=== PATIENT | female | born 1995 | race Two or more races ===

== ENCOUNTER → 2020-07-05 | Outpatient (CLI) | payer MEDICAID | END | disposition home or self-care (01) | LOC: LAB 10:07 | PROVIDERS: ATTEND Physician Assistant | DX: Z20.822 Contact with and (suspected) exposure to COVID-19 (principal) | CPT/HCPCS: C9803; U0003 ==

== ENCOUNTER 2022-01-22 10:13 | Emergency (ER) | payer MEDICAID ==
[~2022-01-22] VITALS: Ht 152.4 cm; Wt 44.5 kg
[2022-01-22] MEDS ORDERED: ASPirin 325 MG TAB PO ONE (10:15)
[2022-01-22 11:00] LABS: Basophils # (auto) 0.1 10 ^3/uL (0-0.2); Basophils % (auto) 0.6 % (0.0-2.0); Eosinophils # (auto) 0.2 10 ^3/uL (0-0.8); Eosinophils % (auto) 2.3 % (0.0-7.0); Hematocrit 42.5 % (36.0-46.0); Hemoglobin 14.2 g/dL (12.2-16.2); Lymphocytes # (auto) 2.8 10 ^3/uL (0.4-5.4); Lymphocytes % (auto) 34.9 % (10.0-50.0); Mean Corpuscular Hemoglobin 29.5 pg (28.0-32.0); Mean Corpuscular Hgb Conc. 33.4 g/dL (32.0-36.0); Mean Corpuscular Volume 88.4 fL (80.0-100.0); Monocytes # (auto) 0.4 10 ^3/uL (0-1.3); Monocytes % (auto) 4.9 % (0.0-12.0); Neutrophils # (auto) 4.5 10 ^3/uL (1.6-8.6); Neutrophils % (auto) 57.3 % (37.0-80.0); Nucleated Red Blood Cells % 0.5 %; Red Blood Cells 4.81 10^6/uL (4.0-5.20); Red Cell Distribution Width 12.4 % (11.8-14.3); White Blood Cell 7.9 10^3/uL (4.4-10.8)
[2022-01-22 11:37] LABS: Albumin 4.3 g/dL (3.4-5.0); BUN/Creatinine Ratio 22.4; Bilirubin, Total 0.2 mg/dL (0.2-1.0); Calcium 9.4 mg/dL (8.5-10.1); Potassium 4.5 mmol/L (3.5-5.1); Total Protein 8.3 g/dL (6.4-8.2)
[2022-01-22] MEDS ORDERED: cefTRIAXone SOD 1,000 MG VL IM ONE (11:45)
[2022-01-22] MEDS ORDERED: methylPREDNISolone SOD SUCC 125 MG/2 ML VL IM ONE (11:45)
[2022-01-22] MEDS ORDERED: LEVO-28 PO (13:19)
[2022-01-22] MEDS ORDERED: PANT40TA2 PO (13:19)
[2022-01-22] MEDS ORDERED: PRED10TA PO (13:19)
[2022-01-22 14:42] VITALS: BP 132/80
== END 2022-01-22 14:43 | disposition home or self-care (01) ==
LOC: ER 10:16
DX: J06.9 Acute upper respiratory infection, unspecified (principal); J40 Bronchitis, not specified as acute or chronic; Z20.822 Contact with and (suspected) exposure to COVID-19
CPT/HCPCS: 36415; 71045; 80053; 84484; 85025; 87426; 87804; 93005; 99285; J0696; J2930

== ENCOUNTER 2025-01-30 17:56 | Inpatient (IN) | payer MEDICAID ==
[~2025-01-30] VITALS: Ht 152.4 cm; Wt 52.0 kg
[~2025-01-30 17:56] MED LIST: LEVO500T91 PO; PANT40TA2 PO; PRED10TA PO
[2025-01-30] MEDS: ONDANSETRON ODT 4 MG TAB PO ONE (18:22)
[2025-01-30 18:25] LABS: Hematocrit 40.5 % (36.0-46.0); Hemoglobin 14.1 g/dL (12.2-16.2); Mean Corpuscular Hemoglobin 30.9 pg (28.0-32.0); Mean Corpuscular Volume 88.5 fL (80.0-100.0); Nucleated Red Blood Cells % 0.0 %
[2025-01-30 18:41] LABS: Alanine Aminotransferase 14 U/L (7-40); Alkaline Phosphatase 56 U/L (46-116); Calcium 9.5 mg/dL (8.7-10.4); Carbon Dioxide 21 mmol/L (20-31); Chloride 107 mmol/L (98-107)
[2025-01-30 18:42] LABS: Albumin 4.7 g/dL (3.2-4.8); Anion Gap 10 (5-15); BUN/Creatinine Ratio 16.1 (10.0-20.0); Blood Urea Nitrogen 10 mg/dL (9-23); Glucose 95 mg/dL (74-106); Sodium 138 mmol/L (136-145); Total Protein 7.9 g/dL (5.7-8.2)
[2025-01-30 18:43] LABS: Bilirubin, Total 0.2 mg/dL (0.2-1.0); Potassium 3.2 mmol/L (3.5-5.1)
--- NOTE | 2025-01-30 20:13 | ED.PDOC ---
HPI Comments 29-year-old female who came to ER for chest pains. . Patient is a approximately 9-10 weeks . About an hour ago patient started having midsternal chest pains, palpitations, nausea and vomiting. Patient states he had a similar episode and during her 1st , was seen by engineer sergeant, but was unable to remember what she was diagnosed with. Patient currently not taking any cardiac meds. Denies any vaginal bleeding or abdominal cramping at this time Chief Complaint: Chest Pain Time Seen by MD: 20:12 Reviewed Notes: Nurses Notes Allergies: Coded Allergies: NO KNOWN ALLERGIES (Unverified , 02/07/14) Home Meds Active Scripts Levofloxacin Hemihydrate (LEVOFLOXACIN) 500 Mg Tab, 1 TAB PO DAILY for 7 Days, #7 TAB Prov:FIFI PHAM MD 01/22/22 Pantoprazole Sodium Sesquihydr (Protonix) 40 Mg Tab, 40 MG PO DAILY for 7 Days, #7 TAB Prov:FIFI PHAM MD 01/22/22 Prednisone (Prednisone) 10 Mg Tab, 10 MG PO DAILY for 7 Days, #7 MG Prov:FIFI PHAM MD 01/22/22 Information Source: Patient Mode of Arrival: Ambulatory Past Medical History PAST MEDICAL HISTORY: Denies Past Medical History (Other): SVT? Surgical History: Denies all surgeries LEAD SHOP OPERATOR History: No Pertinent LEAD SHOP OPERATOR History Family History Family History: Reviewed,noncontributory to illness Social History Smoker: Non-Smoker Alcohol: Denies ETOH Use Drugs: Denies Drug Use Lives In: Home Constitutional: denies: chills, diaphoresis, fatigue, fever, malaise, sweats, weakness, others EENTM: denies: blurred vision, double vision, ear bleeding, ear discharge, ear drainage, ear pain, ear ringing, eye pain, eye redness, hearing loss, mouth pain, mouth swelling, nasal discharge, nose bleeding, nose congestion, nose pain, photophobia, tearing, throat pain, throat swelling, voice changes, others Respiratory: denies: cough, hemoptysis, orthopnea, SOB at rest, shortness of breath, SOB with excertion, stridor, wheezing, others Cardiovascular: reports: chest pain, palpitations; denies: dizzy spells, diaphoresis, Dyspnea on exertion, edema, irregular heart beat, left arm pain, lightheadedness, PND, syncope, others Gastrointestinal: reports: nausea, vomiting; denies: abdomen distended, abdominal pain, blood streaked bowels, constipated, diarrhea, dysphagia, difficulty swallowing, hematemesis, melena, poor appetite, poor fluid intake, rectal bleeding, rectal pain, others Genitourinary: denies: abnormal vagina bleeding, burning, dyspareunia, dysuria, flank pain, frequency, hematuria, incontinence, pain, , vagina discharge, urgency, others Neurological: denies: dizziness, fainting, headache, left sided numbness, left sided weakness, numbness, paresthesia, pre-existing deficit, right sided numbness, right sided weakness, seizure, speech problems, tingling, tremors, weakness, others Musculoskeletal: denies: back pain, gout, joint pain, joint swelling, muscle pain, muscle stiffness, neck pain, others Integumetry: denies: bruises, change in color, change in hair/nails, dryness, laceration, lesions, lumps, rash, wounds, others Allergic/Immunocompromised: denies: Difficulty Healing, Frequent Infections, Hives, Itching, others Hematologic/Lymphatic: denies: anemia, blood clots, easy bleeding, easy bruising, swollen glands, others Endocrine: denies: excessive hunger, excessive sweating, excessive thirst, excessive urination, flushing, intolerance to cold, intolerance to heat, unexplained weight gain, unexplained weight loss, others Psychiatric: denies: anxiety, bipolar disorder, depression, hopeless, panic disorder, schizophrenia, sleepless, suicidal, others Physical Exam General Appearance: No Apparent Distress, Normal HEENT: Normal ENT Inspection, Pharynx Normal, TMs Normal Neck: Full Range of Motion, Non-Tender, Normal, Normal Inspection Respiratory: Chest Non-Tender, Lungs Clear, No Accessory Muscle Use, No Respiratory Distress, Normal Breath Sounds Cardiovascular: No Edema, No JVD, No Murmur, No Gallop, Normal Peripheral Pulses, Regular Rate/Rhythm Breast Exam: Deferred Gastrointestinal: No Organomegaly, Non Tender, No Pulsatile Mass, Normal Bowel Sounds, Soft Genitalia: Deferred Pelvic: Deferred Rectal: Deferred Extremities: No calf tenderness, Normal capillary refill, Normal inspection, Normal range of motion, Non-tender, No pedal edema Musculoskeletal : Apperance: Normal Neurologic: Alert, differential specialist II-XII nml as Tested, No Motor Deficits, Normal Affect, Normal Mood, No Sensory Deficits Cerebellar Function: Normal Reflexes: Normal Skin: Dry, Normal Color, Warm Lymphatic: No Adenopathy EKG EKG : Pulse Rate (adult): 122 Cardiac Rhythm: ST Was a procedure done? Was a procedure done?: No CP Differential Dx Differential Diagnosis: A-fib, Angina, Anxiety / Panic Attack, Electrolyte Disorder, Hyperthyroidism, Hyperventilation, PSVT, Sinus Tachycardia X-Ray, Labs, Meds, VS Vital Signs Date Time Temp Pulse Resp B/P (MAP) Pulse Ox O2 Delivery O2 Flow Rate FiO2 01/30/25 21:41 98.3 119 28 122/95 (104) 99 98.3 01/30/25 20:59 122 01/30/25 20:13 122 01/30/25 19:30 122 01/30/25 19:16 156 25 142/105 (117) 100 01/30/25 18:02 134 01/30/25 18:00 98.2 153 19 138/103 100 98.2 Lab Test 01/30/25 20:17 01/30/25 19:37 01/30/25 18:19 01/30/25 18:16 Range/Units Urine Color Colorless Yellow Urine Clarity Turbid H Clear Urine pH 5.5 5.0-9.0 Urine Specific [place] 1.016 1.001-1.035 Urine Protein Negative Negative Urine Ketones Negative Negative Urine Blood Negative Negative /uL Urine Nitrite Negative Negative Urine Bilirubin Negative Negative Urine Urobilinogen Normal Negative mg/dL Urine Leukocyte Esterase 2+ Negative /uL Urine RBC 3 0 - 4 /hpf Urine Microscopic WBC 16 H 0-5 /HPF Urine Squamous Epithelial Cells Mod <5 /hpf Urine Bacteria Mod H None Seen /hpf Urine Mucus Few None Seen Urine Yeast (Budding) Occasional None Seen /hpf Urine Glucose Normal Normal mg/dL Urine Test Positive Negative Troponin I High Sensitivity 3 L < 3 L </=34 ng/L Thyroid Stimulating Hormone (TSH) 1.55 0.55-4.78 uIU/mL Beta HCG, Quantitative 17660.1 H 1.5-4.2 mIU/mL Free Thyroxine (T4) Calculated Pending White Blood Count 6.7 4.4-10.8 10^3/uL Red Blood Count 4.57 4.0-5.20 10^6/uL Hemoglobin 14.1 12.2-16.2 g/dL Hematocrit 40.5 36.0-46.0 % Mean Corpuscular Volume 88.5 80.0-100.0 fL Mean Corpuscular Hemoglobin 30.9 28.0-32.0 pg Mean Corpuscular Hemoglobin Concent 35.0 32.0-36.0 g/dL Red Cell Distribution Width 13.0 11.8-14.3 % Platelet Count 232 140-450 10^3/uL Mean Platelet Volume 8.8 6.9-10.8 fL Neutrophils (%) (Auto) 73.3 37.0-80.0 % Lymphocytes (%) (Auto) 18.9 10.0-50.0 % Monocytes (%) (Auto) 6.4 0.0-12.0 % Eosinophils (%) (Auto) 1.2 0.0-7.0 % Basophils (%) (Auto) 0.2 0.0-2.0 % Neutrophils # (Auto) 4.9 1.6-8.6 10 ^3/uL Lymphocytes # (Auto) 1.3 0.4-5.4 10 ^3/uL Monocytes # (Auto) 0.4 0-1.3 10 ^3/uL Eosinophils # (Auto) 0.1 0-0.8 10 ^3/uL Basophils # (Auto) 0 0-0.2 10 ^3/uL Nucleated Red Blood Cells 0.0 % D-Dimer, Quantitative 0.49 0.0-0.49 mg/L FEU Sodium Level 138 136-145 mmol/L Potassium Level 3.2 L 3.5-5.1 mmol/L Chloride Level 107 98-107 mmol/L Carbon Dioxide Level 21 20-31 mmol/L Anion Gap 10 5-15 Blood Urea Nitrogen 10 9-23 mg/dL Creatinine 0.62 0.550-1.02 mg/dL Glomerular Filtration Rate Calc 125 >90 mL/min BUN/Creatinine Ratio 16.1 10.0-20.0 Serum Glucose 95 74-106 mg/dL Calcium Level 9.5 8.7-10.4 mg/dL Total Bilirubin 0.2 0.2-1.0 mg/dL Aspartate Amino Transferase (AST) 18 13-40 U/L Alanine Aminotransferase (ALT) 14 7-40 U/L Alkaline Phosphatase 56 46-116 U/L Total Protein 7.9 5.7-8.2 g/dL Albumin 4.7 3.2-4.8 g/dL Current Medications Medications (Trade) Dose Ordered Sig/[place]ennox Route Start Time Stop Time Status Last Admin Ondansetron HCl (Zofran Po) 8 mg ONCE ONCE PO 01/30/25 18:30 01/30/25 18:31 DC 01/30/25 18:22 Time of 1ST Reevaluation: 20:10 Reevaluation 1ST: Unchanged Patient Education/Counseling: Diagnosis, Treatment Family Education/Counseling: No Family Present SEPSIS Sepsis Screen Date sepsis recognized/suspect: Jan 30, 2025 Time Sepsis recognized/suspect: 1802 Recent Procedure: No On Antibiotic Therapy: No Respiratory Rate >20: No Heart Rate >90: No Temp<36 C (96.8 F) or >38.3 C: No SBP <90 or MAP <65 mmHG: No New Acute Mental Status Change: No Is the patient on CPAP, BIPAP,: No Physician Orders Free T4 (Free Thyroxine) (01/30/25 19:15) Lactic Acid W/ Reflex Order (01/30/25 21:42) Blood Culture (01/30/25 21:42) Sodium Chloride 0.9% (01/30/25 21:45) Ceftriaxone 2gm/50ml (Rocephin 2gm/50ml) (01/30/25 21:45) Vital Signs Date Time Temp Pulse Resp B/P (MAP) Pulse Ox O2 Delivery O2 Flow Rate FiO2 01/30/25 21:41 98.3 119 28 122/95 (104) 99 98.3 01/30/25 20:59 122 01/30/25 20:13 122 01/30/25 19:30 122 01/30/25 19:16 156 25 142/105 (117) 100 01/30/25 18:02 134 01/30/25 18:00 98.2 153 19 138/103 100 98.2 Laboratory Tests Test 01/30/25 18:16 White Blood Count 6.7 10^3/uL (4.4-10.8) Medications Medications Dose Ordered Sig/Lennox Route Start Time Stop Time Status Last Admin Dose Admin Ondansetron HCl 8 mg ONCE ONCE PO 01/30/25 18:30 01/30/25 18:31 DC 01/30/25 18:22 Departure 1 Departure Time of Disposition: 21:50 Impression: Primary Impression: Tachycardia Additional Impressions: Dyspnea 9 weeks gestation of Urinary tract infection Pyelonephritis Disposition: ADMITTED INPATIENT Admit to: Med Surg Condition: Guarded Comments 29-year-old female now with 9 week and feeling short of breath with palpitations. She has been quite tachycardic from the 120s to 150s. It looks like she has a urinary tract infection on lab results. Patient will need to be admitted for IV antibiotics and IV fluids and supportive care and further workup. Critical Care Note Critical Care Time?: No Stability Stability form required: No Heart Score Heart Score: Heart Score Response (Comments) Value History Moderate Suspicious 1 EKG Repolarization Disturb 1 Age <45 0 Risk Factors 1 or 2 risk factors 1 Troponin Normal limit 0 Total 3 I personally scribed for EMILE MILLS MD ([email or web address]) on 01/30/25 at 20:13. Electronically submitted by Casa Altman ([email or web address]). EMILE MILLS MD Jan 30, 2025 20:13
[2025-01-30 20:20] LABS: Thyroid Stimulating Hormone 1.55 uIU/mL (0.55-4.78)
[2025-01-30 20:29] LABS: Urine Budding Yeast OCCASIONAL /hpf (None Seen); Urine Protein, UAD Negative (Negative)
--- NOTE | 2025-01-30 21:01 | ECG ---
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
--- NOTE | 2025-01-30 22:53 | DVH ---
OB ULTRASOUND <14 WEEKS: HISTORY: r/o demise TECHNIQUE: Multiple real-time grayscale sonographic images of the pelvis with duplex Doppler color flow, spectral and M-mode analysis. COMPARISON: None FINDINGS: The uterus measures 12.1 x 4.9 x 7.8 cm The cervix is unremarkable Right ovary measures 3.0 x 2.3 x 2.8 cm with normal Doppler color flow. Left ovary measures 0.5 x 1.7 x 2.4 cm with normal Doppler color flow. IUP single fetus at 9 weeks 2 days average ultrasound age based on mean crown- rump length of 2.86 cm and gestational sac size of 3.71 cm heart rate detected at 171 beats per minute. Yolk sac present. Amniotic fluid within normal limits Christiane-gestational space: Moderate size subchorionic hemorrhage on the inferior aspect of the gestational sac with 1 component measuring 2.3 x 0.6 x 1.5 cm in the other component measuring 2.5 x 1.3 x 1.0 cm. IMPRESSION: IUP single live fetus measuring 9 weeks 2 days AUA corresponding to an JP of 09/02/2025. Two adjacent subchorionic hemorrhages noted.
[2025-01-30] MEDS: SODIUM CHLORIDE 0.9% 1,350 ML IV ONE (23:30)
--- NOTE | 2025-01-30 23:35 | DVHHPRES ---
History of Present Illness Resident Creating Document: ELSI MICHEL RESIDENT History of Present Illness Ms Radha Michael, a 29-year-old female, , 9 weeks presented to the ER with the complaints of palpitations and chest pain for 1 day. She reports having those symptoms spontaneously while she was taking rest. She reports the chest pain as tightness, as someone sitting on the chest, which radiates to the back and shoulder blades. She also reports having mild shortness of breaths with a no relation to position change. She denies any urinary symptoms, vaginal bleeding, fever or any other complaints. She denies any caffeine use, anxiety, thyroid disorders. The patient is not taking any vitamins or folic acid due to concern for shellfish allergy, she believes multivitamin contains shellfish. Past medical history: Possible Arrhythmia during previous , which required DC shock? Past surgical history: none, 1st baby was born by normal vaginal delivery Allergies: Shellfish Menstrual history: Currently 9 weeks , regular menstruation. PCP: None, family welfare social work professor: Dr. Turcios Denies smoking, drugs, alcohol. Home medications: None Review of Systems Allergies: Coded Allergies: NO KNOWN ALLERGIES (Unverified , 02/07/14) Exam Vital Signs Vital Signs Date Time Temp Pulse Resp B/P (MAP) Pulse Ox O2 Delivery O2 Flow Rate FiO2 01/30/25 21:41 98.3 119 28 122/95 (104) 99 98.3 Exam Pt is lying on bed General Appearance: Alert, Oriented X3, Cooperative, Mild distress HEENT: Atraumatic, Mucous membranes moist/pink Respiratory: Clear to auscultation, Normal air movement, No added sounds Cardiovascular: Regular rate, Normal S1, Normal S2, No murmurs Abdominal/ : Active bowel sounds, Soft, no distention, no tenderness Extremities: No edema, Normal pulses, No tenderness/swelling Skin: No Significant rash, except past surgical scars Neuro: Normal speech, sensorimotor deficits none Psych/Mental Status: Mental status NL, Mood NL Nurse was there as roller stainer during examination Labs/Xrays Labs Test 01/30/25 21:49 01/30/25 20:17 01/30/25 19:37 01/30/25 18:19 Range/Units Lactic Acid Level 0.7 0.4-2.0 mmol/L Urine Color Colorless Yellow Urine Clarity Turbid H Clear Urine pH 5.5 5.0-9.0 Urine Specific [place] 1.016 1.001-1.035 Urine Protein Negative Negative Urine Ketones Negative Negative Urine Blood Negative Negative /uL Urine Nitrite Negative Negative Urine Bilirubin Negative Negative Urine Urobilinogen Normal Negative mg/dL Urine Leukocyte Esterase 2+ Negative /uL Urine RBC 3 0 - 4 /hpf Urine Microscopic WBC 16 H 0-5 /HPF Urine Squamous Epithelial Cells Mod <5 /hpf Urine Bacteria Mod H None Seen /hpf Urine Mucus Few None Seen Urine Yeast (Budding) Occasional None Seen /hpf Urine Glucose Normal Normal mg/dL Urine Test Positive Negative Troponin I High Sensitivity 3 L </=34 ng/L Thyroid Stimulating Hormone (TSH) 1.55 0.55-4.78 uIU/mL Beta HCG, Quantitative 68312.1 H 1.5-4.2 mIU/mL Test 01/30/25 18:16 Range/Units White Blood Count 6.7 4.4-10.8 10^3/uL Red Blood Count 4.57 4.0-5.20 10^6/uL Hemoglobin 14.1 12.2-16.2 g/dL Hematocrit 40.5 36.0-46.0 % Mean Corpuscular Volume 88.5 80.0-100.0 fL Mean Corpuscular Hemoglobin 30.9 28.0-32.0 pg Mean Corpuscular Hemoglobin Concent 35.0 32.0-36.0 g/dL Red Cell Distribution Width 13.0 11.8-14.3 % Platelet Count 232 140-450 10^3/uL Mean Platelet Volume 8.8 6.9-10.8 fL Neutrophils (%) (Auto) 73.3 37.0-80.0 % Lymphocytes (%) (Auto) 18.9 10.0-50.0 % Monocytes (%) (Auto) 6.4 0.0-12.0 % Eosinophils (%) (Auto) 1.2 0.0-7.0 % Basophils (%) (Auto) 0.2 0.0-2.0 % Neutrophils # (Auto) 4.9 1.6-8.6 10 ^3/uL Lymphocytes # (Auto) 1.3 0.4-5.4 10 ^3/uL Monocytes # (Auto) 0.4 0-1.3 10 ^3/uL Eosinophils # (Auto) 0.1 0-0.8 10 ^3/uL Basophils # (Auto) 0 0-0.2 10 ^3/uL Nucleated Red Blood Cells 0.0 % D-Dimer, Quantitative 0.49 0.0-0.49 mg/L FEU Sodium Level 138 136-145 mmol/L Potassium Level 3.2 L 3.5-5.1 mmol/L Chloride Level 107 98-107 mmol/L Carbon Dioxide Level 21 20-31 mmol/L Anion Gap 10 5-15 Blood Urea Nitrogen 10 9-23 mg/dL Creatinine 0.62 0.550-1.02 mg/dL Glomerular Filtration Rate Calc 125 >90 mL/min BUN/Creatinine Ratio 16.1 10.0-20.0 Serum Glucose 95 74-106 mg/dL Calcium Level 9.5 8.7-10.4 mg/dL Total Bilirubin 0.2 0.2-1.0 mg/dL Aspartate Amino Transferase (AST) 18 13-40 U/L Alanine Aminotransferase (ALT) 14 7-40 U/L Alkaline Phosphatase 56 46-116 U/L Total Protein 7.9 5.7-8.2 g/dL Albumin 4.7 3.2-4.8 g/dL SEPSIS Sepsis Screen Date sepsis recognized/suspect: Jan 30, 2025 Time Sepsis recognized/suspect: 1802 Recent Procedure: No On Antibiotic Therapy: No Respiratory Rate >20: No Heart Rate >90: No Temp<36 C (96.8 F) or >38.3 C: No SBP <90 or MAP <65 mmHG: No New Acute Mental Status Change: No Is the patient on CPAP, BIPAP,: No Physician Orders Free T4 (Free Thyroxine) (01/30/25 19:15) Blood Culture (01/30/25 21:42) Ob Ultrasound Comp Less 14wks (01/30/25 21:52) Thyroid Stimulating Hormone (01/30/25 23:31) Admit (01/30/25 23:31) Notify Of Changes From Base (01/30/25 23:31) Van Driver Helper For 24 Hours (01/30/25 23:31) Emergency Dysrhythmia Protocol (01/30/25 23:31) Rhythm Strips Once Every Shift (01/30/25 23:31) Potassium Effervesent Tab (Klor-Con/Ef) (01/30/25 23:45) Vital Signs Date Time Temp Pulse Resp B/P (MAP) Pulse Ox O2 Delivery O2 Flow Rate FiO2 01/30/25 21:41 98.3 119 28 122/95 (104) 99 98.3 01/30/25 20:59 122 01/30/25 20:13 122 01/30/25 19:30 122 01/30/25 19:16 156 25 142/105 (117) 100 01/30/25 18:02 134 01/30/25 18:00 98.2 153 19 138/103 100 98.2 Laboratory Tests Test 01/30/25 18:16 01/30/25 21:49 White Blood Count 6.7 10^3/uL (4.4-10.8) Lactic Acid Level 0.7 mmol/L (0.4-2.0) Medications Medications Dose Ordered Sig/Lennox Route Start Time Stop Time Status Last Admin Dose Admin Ceftriaxone Sodium/Dextrose 50 ml @ 50 mls/hr ONCE ONCE IV 01/30/25 21:45 01/30/25 22:44 DC 01/30/25 23:30 50 MLS/HR Ondansetron HCl 8 mg ONCE ONCE PO 01/30/25 18:30 01/30/25 18:31 DC 01/30/25 18:22 8 MG Sodium Chloride 1,350 ml @ 1,350 mls/hr ONCE ONCE IV 01/30/25 21:45 01/30/25 22:44 DC 01/30/25 23:30 1,350 MLS/HR Assessment/Plan Assessment/Plan Chest pain rule out ACS Tachycardia/palpitations EKG: Sinus tachycardia, no acute ischemic changes Troponin WNL Echocardiography ordered with no vaginal bleed -ultrasound: Live fetus, with adjacent subchorionic hemorrhage -recommended with green leafy vegetables -consider multivitamins and folic acid after family welfare social work professor consult, due to patient has allergies to multivitamin -family welfare social work professor consultation done Rule out thyroid disorder -TSH and free T4 ordered GI prophylaxis: Not indicated DVT prophylaxis: SCDs Diet: Regular Goals of care discussed with the patient for more than 27 minutes: Full code status Case discussed with Dr. Weiss , patient and RN Plan discussed with: Patient, Other (RN) My Orders Orders - ELSI MICHEL Procedure Category Date Status Time Thyroid Stimulating LAB 01/30/25 Verified Hormone 23:31 Admit ADMIT 01/30/25 Verified 23:31 Notify Md Of Changes [facility] 01/30/25 Verified From Base 23:31 Van Driver Helper For [facility] 01/30/25 Verified 24 Hours 23:31 Emergency Dysrhythmia [facility] 01/30/25 Verified Protocol 23:31 Rhythm Strips Once [facility] 01/30/25 Verified Every Shift 23:31 Potassium Effervesent [facility] WITH [facility] 01/30/25 Verified Tab (Klor-Con/Ef) 23:45 Date of Service: Jan 30, 2025 Billing Provider: ELSI MICHEL MARIA RESIDENT Jan 30, 2025 23:35
[2025-01-31] MEDS: POTASSIUM EFFERVESENT TAB 25 MEQ PO ONE (00:22)
[2025-01-31 02:00] VITALS: PULSE 97; RESP 19; O2SAT 98
[2025-01-31 08:12] LABS: Alanine Aminotransferase 15 U/L (7-40); Alkaline Phosphatase 48 U/L (46-116); Anion Gap 10 (5-15); Carbon Dioxide 23 mmol/L (20-31); Chloride 106 mmol/L (98-107); Glucose 83 mg/dL (74-106); Potassium 3.7 mmol/L (3.5-5.1); Sodium 139 mmol/L (136-145)
[2025-01-31 08:13] LABS: Albumin 4.0 g/dL (3.2-4.8); BUN/Creatinine Ratio 11.5 (10.0-20.0); Total Protein 6.8 g/dL (5.7-8.2)
[2025-01-31 08:17] LABS: Bilirubin, Total 0.3 mg/dL (0.2-1.0); Blood Urea Nitrogen 6 mg/dL (9-23); Calcium 8.6 mg/dL (8.7-10.4)
--- NOTE | 2025-01-31 12:25 | DVHPN2 ---
Subjective The patient is seen and examined at bedside. Complain of chest pain and heart palpitation. She said every time she she had this severe heart palpitation and chest pain. Reviewed: Care Plan, H&P, Labs, Medications, Previous Orders, Radiology Changes from previous H/P or p: No Changes Objective Vitals Vital Signs Date Time Temp Pulse Resp B/P (MAP) Pulse Ox O2 Delivery O2 Flow Rate FiO2 01/31/25 12:05 99 01/31/25 10:00 15 126/72 (90) 98 01/31/25 08:33 Room Air* 0 21 01/31/25 08:00 98.9 98.9 General Appearance: Alert, Oriented X3, Cooperative, mild distress HEENT: Atraumatic, PERRLA, EOMI, Mucous membr. moist/pink Neck: Supple Lungs: Clear to auscultation, Normal air movement Cardiovascular: Regular rate, Normal S1, Normal S2, No murmurs, Gallops, Rubs Abdomen: Normal bowel sounds, Soft, No tenderness Neuro: Cranial nerves 3-12 NL Psych/Mental Status: Mental status NL Medications Current Medications Medications Dose Ordered Sig/Lennox Route Start Time Stop Time Status Last Admin Dose Admin Ceftriaxone Sodium 50 ml @ 100 mls/hr DAILY@2100 IV 01/31/25 21:00 Laboratory Results Laboratory Tests 01/30/25 18:16 01/31/25 07:42 Chemistry Test 01/30/25 18:16 01/31/25 07:42 Albumin 4.7 g/dL (3.2-4.8) 4.0 g/dL (3.2-4.8) Calcium Level 9.5 mg/dL (8.7-10.4) 8.6 mg/dL (8.7-10.4) L Total Protein 7.9 g/dL (5.7-8.2) 6.8 g/dL (5.7-8.2) Coagulation Test 01/30/25 18:16 D-Dimer, Quantitative 0.49 mg/L FEU (0.0-0.49) LFT Test 01/30/25 18:16 01/31/25 07:42 Alanine Aminotransferase (ALT) 14 U/L (7-40) 15 U/L (7-40) Alkaline Phosphatase 56 U/L (46-116) 48 U/L (46-116) Aspartate Amino Transferase (AST) 18 U/L (13-40) 17 U/L (13-40) Total Bilirubin 0.2 mg/dL (0.2-1.0) 0.3 mg/dL (0.2-1.0) HgA1c, TSH Test 01/30/25 19:37 01/30/25 21:49 Thyroid Stimulating Hormone (TSH) 1.55 uIU/mL (0.55-4.78) 1.77 uIU/mL (0.55-4.78) Urinalysis Test 01/30/25 20:17 Urine Color Colorless (Yellow) Urine Clarity Turbid (Clear) H Urine pH 5.5 (5.0-9.0) Urine Specific [place] 1.016 (1.001-1.035) Urine Protein Negative (Negative) Urine Ketones Negative (Negative) Urine Blood Negative /uL (Negative) Urine Nitrite Negative (Negative) Urine Bilirubin Negative (Negative) Urine Urobilinogen Normal mg/dL (Negative) Urine Leukocyte Esterase 2+ /uL (Negative) Urine RBC 3 /hpf (0 - 4) Urine Microscopic WBC 16 /HPF (0-5) H Urine Squamous Epithelial Cells Mod /hpf (<5) Urine Bacteria Mod /hpf (None Seen) H Urine Mucus Few (None Seen) Urine Yeast (Budding) Occasional /hpf (None Urine Glucose Normal mg/dL (Normal) Urine Test Positive (Negative) Labs and/or images reviewed: Labs reviewed by me Assessment/Plan Assessment/Plan Chest pain rule out ACS Tachycardia/palpitations EKG: Sinus tachycardia, no acute ischemic changes Troponin WNL Echocardiography ordered with no vaginal bleed -ultrasound: Live fetus, with adjacent subchorionic hemorrhage -recommended with green leafy vegetables -consider multivitamins and folic acid after technology adoption manager consult, due to patient has allergies to multivitamin -technology adoption manager consultation done Rule out thyroid disorder -TSH and free T4 ordered GI prophylaxis: Not indicated DVT prophylaxis: SCDs Diet: Regular Continuing current management. Cardiology consult for chest pain. This medical document was created using an electronic medical record system with [employer] direct computerized dictation system. Although this document has been carefully reviewed, there may still be some phonetic and typographical errors. These areas are purely typographical due to imperfections of the software programs, and do not reflect any compromise in the patient's medical care. Plan discussed with: Patient Date of Service: Jan 31, 2025 Billing Provider: DORON ROBERT MD Common Visit Codes: 52002-[id number] INP/OBS CARE(HIGH) DORON ROBERT MD Jan 31, 2025 12:25
[2025-01-31 12:54] VITALS: PULSE 94; RESP 14; O2SAT 98
[2025-01-31 19:32] VITALS: PULSE 95; RESP 14; O2SAT 98
[2025-01-31 23:12] VITALS: PULSE 88; RESP 17; O2SAT 98
[2025-02-01] VITALS (8 sets, daily range): BP systolic 104–120; BP diastolic 70–90; PULSE 86–117; RESP 16–20; TEMP 97.6–98.1; O2SAT 98–100
[2025-02-01] MEDS ORDERED: ACETAMINOPHEN 325 MG TAB PO PRN
--- NOTE | 2025-02-01 09:41 | DVHINCON2 ---
QI SCHAFFER [facility] 02/01/25 0941: Date Seen: Feb 01, 2025 Referring Physician MD Brit Reason for Consultation Chest pain History of Present Illness This is a pleasant 29-year-old female who presented to the emergency room with a chief complaint of palpitations on Saturday. The patient complains of intermittent palpitations since Saturday with one event lasting approximately 15 minutes and prompting her to seek further medical attention. She also complains of chest pain described as intermittent, substernal, non provoked, stabbing in nature, radiating to bilateral shoulders and right lower back. The patient reports she is currently 10 weeks and reports experiencing a similar event during her last when she was seven months into gestation in 12/2022. At that time, she experienced persistent palpitations for which she attended [facility] where she was found with an unspecified t achyarrhythmia undergoing direct current cardioversion x2. Patient reports she was admitted overnight. Denies being evaluated by a executive admin neither undergoing further cardiac workup. She was recommended to follow-up with her VEGETABLE LOADER to refer her to a primary executive admin for which she was referred but the patient somehow did not follow up as she felt it would not be safe for her . States she approximately drinks 1.5 L of water per day. Denies the use of caffeine, energy drinks, or pre-workout. Significant medical history includes gestational tachyarrhythmia status post DCCV in 12/2022 and . Past Medical History Past medical history reviewed. No other significant than mentioned above. Past Surgical History Denies any past surgical history. Family History: Diabetes mellitus G8 FATHER Hypertension G8 FATHER Family History Denies family history for cardiovascular disease. Social History Denies the use of illicit drugs, alcohol, or tobacco use. Allergies: Uncoded Allergies: SHELLFISH (Allergy, Severe, anaphlaxis, 01/31/25) Home Meds No Active Prescriptions or Reported Meds Home Meds Home medications reviewed. Current Medications Current Medications Medications (Trade) Dose Ordered Sig/Lennox Route PRN Reason Start Time Stop Time Status Last Admin Ceftriaxone Sodium 50 ml @ 100 mls/hr DAILY@2100 IV 01/31/25 21:00 01/31/25 21:05 Acetaminophen (Tylenol Tablet) 650 mg Q6HPRN PRN PO MILD PAIN (1-3 PAIN SCALE) 02/01/25 00:00 Review of Systems Constitutional: No symptom reported Ears, Nose, & Throat: No symptom reported Eyes: No symptom reported Neurological: No symptoms reported Pulmonary/Respiratory: No symptom reported Cardiovascular: Palpitations, chest pain Gastrointestinal: No symptom reported Genitourinary: No symptom reported Musculoskeletal: No symptom reported Skin: No symptom reported Psychiatric: No symptom reported Endocrine: No symptom reported Hemotologic/Lymphatic: No symptom reported Vital Signs Vital Signs Date Time Temp Pulse Resp B/P (MAP) Pulse Ox O2 Delivery O2 Flow Rate FiO2 02/01/25 05:00 98.1 86 16 106/76 (86) 99 98.1 01/31/25 23:12 Room Air* 0 21 Physical Exam General Appearance: Cooperative. Well developed. Well nourished. In no acute distress Head Exam: Normal inspection Neck Exam: Normal inspection. Non-tender. Normal alignment Pulmonary/Respiratory: Chest non-tender. Clear bilateral breath sounds Cardiovascular/Chest: Regular rate and rhythm. S1, S2. Sinus rhythm. No murmurs. No JVD. Peripheral Pulses: 2+ Radial (R). 2+ Radial (L). 2+ Pedal (R). 2+ Pedal (L) Abdominal Exam: Normal bowel sounds Ankle Exam: Negative ankle edema Lower extremities: Negative lower extremity edema Neuro/Mental Status: A&O x4. Coherent Thoughts/Psych: Normal thought pattern. Appropriate mood and affect. Good judgement and insight Appearance: In no acute distress Skin Exam: Normal inspection. Normal color. Warm. Dry Labs/Diagnostic Data Labs Test 01/31/25 07:42 01/30/25 21:49 01/30/25 20:17 01/30/25 19:37 Range/Units Sodium Level 139 136-145 mmol/L Potassium Level 3.7 3.5-5.1 mmol/L Chloride Level 106 98-107 mmol/L Carbon Dioxide Level 23 20-31 mmol/L Anion Gap 10 5-15 Blood Urea Nitrogen 6 L 9-23 mg/dL Creatinine 0.52 L 0.550-1.02 mg/dL Glomerular Filtration Rate Calc 131 >90 mL/min BUN/Creatinine Ratio 11.5 10.0-20.0 Serum Glucose 83 74-106 mg/dL Calcium Level 8.6 L 8.7-10.4 mg/dL Total Bilirubin 0.3 0.2-1.0 mg/dL Aspartate Amino Transferase (AST) 17 13-40 U/L Alanine Aminotransferase (ALT) 15 7-40 U/L Alkaline Phosphatase 48 46-116 U/L Total Protein 6.8 5.7-8.2 g/dL Albumin 4.0 3.2-4.8 g/dL Lactic Acid Level 0.7 0.4-2.0 mmol/L Thyroid Stimulating Hormone (TSH) 1.77 0.55-4.78 uIU/mL Urine Color Colorless Yellow Urine Clarity Turbid H Clear Urine pH 5.5 5.0-9.0 Urine Specific [place] 1.016 1.001-1.035 Urine Protein Negative Negative Urine Ketones Negative Negative Urine Blood Negative Negative /uL Urine Nitrite Negative Negative Urine Bilirubin Negative Negative Urine Urobilinogen Normal Negative mg/dL Urine Leukocyte Esterase 2+ Negative /uL Urine RBC 3 0 - 4 /hpf Urine Microscopic WBC 16 H 0-5 /HPF Urine Squamous Epithelial Cells Mod <5 /hpf Urine Bacteria Mod H None Seen /hpf Urine Mucus Few None Seen Urine Yeast (Budding) Occasional None Seen /hpf Urine Glucose Normal Normal mg/dL Urine Test Positive Negative Troponin I High Sensitivity 3 L </=34 ng/L Beta HCG, Quantitative 12949.1 H 1.5-4.2 mIU/mL Test 01/30/25 18:19 01/30/25 18:16 Range/Units White Blood Count 6.7 4.4-10.8 10^3/uL Red Blood Count 4.57 4.0-5.20 10^6/uL Hemoglobin 14.1 12.2-16.2 g/dL Hematocrit 40.5 36.0-46.0 % Mean Corpuscular Volume 88.5 80.0-100.0 fL Mean Corpuscular Hemoglobin 30.9 28.0-32.0 pg Mean Corpuscular Hemoglobin Concent 35.0 32.0-36.0 g/dL Red Cell Distribution Width 13.0 11.8-14.3 % Platelet Count 232 140-450 10^3/uL Mean Platelet Volume 8.8 6.9-10.8 fL Neutrophils (%) (Auto) 73.3 37.0-80.0 % Lymphocytes (%) (Auto) 18.9 10.0-50.0 % Monocytes (%) (Auto) 6.4 0.0-12.0 % Eosinophils (%) (Auto) 1.2 0.0-7.0 % Basophils (%) (Auto) 0.2 0.0-2.0 % Neutrophils # (Auto) 4.9 1.6-8.6 10 ^3/uL Lymphocytes # (Auto) 1.3 0.4-5.4 10 ^3/uL Monocytes # (Auto) 0.4 0-1.3 10 ^3/uL Eosinophils # (Auto) 0.1 0-0.8 10 ^3/uL Basophils # (Auto) 0 0-0.2 10 ^3/uL Nucleated Red Blood Cells 0.0 % D-Dimer, Quantitative 0.49 0.0-0.49 mg/L FEU Microbiology Date/Time Source Procedure Growth Status 01/30/25 21:51 Blood Blood Culture - Preliminary NO GROWTH AFTER 24 HOURS OF INCUBATION. Resulted Assessment Palpitations rule out tachyarrhythmias Rule out structural heart disease Junctional tachycardia, resolved Hx of supraventricular tachycardia at 7 mos gestation status post chemical cardioversion and questionable DCCV Current first trimester gestational state * Transthoracic echocardiogram, pending * Twelve lead electrocardiogram x3 revealed one with junctional tachycardia in the 130s bpm followed by two with sinus tachycardia rhythms in the 120s bpm * Serial troponin levels, negative * Medical records from [facility] accessed by Dr. Scherer: patient found in a supraventricular tachycardia rhythm in the 190s bpm with chemical cardioversion including adenosine 6 mg followed by 12 mg (12/25/2022). During admission she was administered metoprolol p.o. She also underwent a transthoracic echocardiogram revealing an LVEF of 55%. It is not clear if the patient underwent direct current cardioversion for which medical records have been ordered. Plan/Recommendation (Dr. Scherer) We will continue further cardiac evaluation with a transthoracic echocardiogram to rule out structural heart disease. In the meantime, initiate IV fluids given sinus tachycardia in the low 100s bpm at time of assessment. Replete electrolytes as necessary, K>4 and Mg >2. Obtain medical records from [facility] given history of supraventricular tachycardia with questionable DCCV in 2022. The patient can benefit from an outpatient Cardiology/EP evaluation and an event monitor. In the setting of a supraventricular tachycardia event, the patient can be treated initially with vasovagal maneuvers, then adenosine, beta-blockers, and verapamil as 3rd line therapy. Beta-blockers can be use for suppressive therapy for SVT in the absence of pre excitation. Unstable arrhythmias should be treated with electrical cardioversion and antiarrhythmic medications should be avoided in the 1st trimester if possible. Monitor ECG changes closely and notify accordingly. Further orders per clinical course. Thank you for allowing us to participate in this patient's care. Please call if you have any questions or concerns. This medical document was created using an electronic medical record system with voice recognition software and computerized dictation system. Although this document has been carefully reviewed, there might still be some phonetic and typographical errors. Occasional wrong-word or ``sound-alike substitutions may have occurred due to the inherent limitations of voice recognition software. These areas are purely typographical due to imperfections of the software programs and do not reflect any compromise in the patient's medical care. Please read the chart carefully and recognize, using context, where these substitutions have occurred. Plan discussed with: Patient, Other NYHA Physical activity limitations: NA Date of Service: Feb 01, 2025 Billing Provider: QI SCHAFFER Cardiology Common Codes: [id number] INP/OBS CARE (High) UTE SCHERER MD 02/01/25 1653: Family History: Diabetes mellitus G8 FATHER Hypertension G8 FATHER Allergies: Uncoded Allergies: SHELLFISH (Allergy, Severe, anaphlaxis, 01/31/25) Home Meds No Active Prescriptions or Reported Meds Plan/Recommendation pt seen with cv team agree with concert or lecture hall manager assessment and plan independently reviewed previous records at [facility], pt had suspected avnrt with rate of 190 never went for a cv fu on admit pt had junctional tach rate of 130 and sinus tach 120s given IVF replete K needs outpt fu with EP --avoid meds if possible for now Plan discussed with: Patient QI SCHAFFER Feb 01, 2025 09:41 UTE SCHERER MD Feb 01, 2025 16:53
[2025-02-01] MEDS: SODIUM CHLORIDE 0.9% 1,000 ML IV ONE (09:45)
[2025-02-01] MEDS: POTASSIUM EFFERVESENT TAB 25 MEQ PO ONE (09:45)
--- NOTE | 2025-02-01 10:48 | DVHINCON2 ---
REASON FOR CONSULTATION: Palpitation and . HISTORY OF PRESENT ILLNESS: The patient is a 29-year-old 2, para 1 with due date 08/31/2025 based on her last menstrual period, admitted for palpitation. The patient denies having any vaginal bleeding or leakage. Her pelvic ultrasound reveals due date of 09/02/2025 with a subchorionic bleed. The patient sees . PAST MEDICAL HISTORY: None. PAST SURGICAL HISTORY: None. SOCIAL HISTORY: None. FAMILY HISTORY: None. OBSTETRIC AND GYNECOLOGIC HISTORY: One normal vaginal delivery. REVIEW OF SYSTEMS: Consistent with HPI. PHYSICAL EXAMINATION: VITAL SIGNS: Stable. HEENT: Within normal limits. CARDIOVASCULAR: Regular rate and rhythm. LUNGS: Clear to auscultation. BREASTS: Symmetrical. No masses. ABDOMEN: Soft, nontender. PELVIC: Cervix closed, thick, high. No vaginal bleeding noted. Uterus -week size. Adnexa nonpalpable. EXTREMITIES: No clubbing, cyanosis or edema. IMPRESSION: * Intrauterine at 9+ weeks. * Tachycardia. * Subchorionic hemorrhage. RECOMMENDATION: Supportive care. The patient to follow up outpatient as soon as she is discharged for re-scanning of subchorionic bleed. Avoid exercise and do pelvic rest. Thank you very much for this consultation. Ayde Mariscal DO MZ/EKT/MARLENY TID: [id number] RECEIPT: [id number]
[2025-02-01 11:27] LABS: Triglycerides 81.0 mg/dL (< 150)
[2025-02-01 11:28] LABS: Magnesium 1.8 mg/dL (1.6-2.6)
[2025-02-01 11:29] LABS: Cholesterol 184.0 mg/dL (< 200)
[2025-02-01 11:30] LABS: HDL Cholesterol 74.0 mg/dL (40-59)
--- NOTE | 2025-02-01 11:46 | DVHPN2 ---
Subjective The patient is seen and examined at bedside. Complain of chest pain and heart palpitation. She said every time she she had this severe heart palpitation and chest pain. Reviewed: Care Plan, H&P, Labs, Medications, Previous Orders, Radiology Changes from previous H/P or p: No Changes Objective Vitals Vital Signs Date Time Temp Pulse Resp B/P (MAP) Pulse Ox O2 Delivery O2 Flow Rate FiO2 02/01/25 09:00 97.9 103 20 110/78 (89) 98 97.9 02/01/25 08:00 Room Air* 0 21 Intake/Output Intake and Output 02/01/25 07:00 Intake Total 50 ml Balance 50 ml Intake Oral 0 ml IV Total 50 ml # Voids 2 General Appearance: Alert, Oriented X3, Cooperative, mild distress HEENT: Atraumatic, PERRLA, EOMI, Mucous membr. moist/pink Neck: Supple Lungs: Clear to auscultation, Normal air movement Cardiovascular: Regular rate, Normal S1, Normal S2, No murmurs, Gallops, Rubs Abdomen: Normal bowel sounds, Soft, No tenderness Neuro: Cranial nerves 3-12 NL Psych/Mental Status: Mental status NL Medications Current Medications Medications Dose Ordered Sig/Lennox Route Start Time Stop Time Status Last Admin Dose Admin Ceftriaxone Sodium 50 ml @ 100 mls/hr DAILY@2100 IV 01/31/25 21:00 01/31/25 21:05 100 MLS/HR Acetaminophen 650 mg Q6HPRN PRN PO 02/01/25 00:00 Laboratory Results Laboratory Tests 01/30/25 18:16 01/31/25 07:42 Chemistry Test 02/01/25 10:25 Magnesium Level 1.8 mg/dL (1.6-2.6) Lipid panel Test 02/01/25 10:25 Cholesterol Level 184 mg/dL (< 200) HDL Cholesterol 74 mg/dL (40-59) H Triglycerides Level 81 mg/dL (< 150) HgA1c, TSH Test 02/01/25 10:25 Hemoglobin A1c 5.1 % A1C (<5.7) Urinalysis Test 01/30/25 20:17 Urine Color Colorless (Yellow) Urine Clarity Turbid (Clear) H Urine pH 5.5 (5.0-9.0) Urine Specific [place] 1.016 (1.001-1.035) Urine Protein Negative (Negative) Urine Ketones Negative (Negative) Urine Blood Negative /uL (Negative) Urine Nitrite Negative (Negative) Urine Bilirubin Negative (Negative) Urine Urobilinogen Normal mg/dL (Negative) Urine Leukocyte Esterase 2+ /uL (Negative) Urine RBC 3 /hpf (0 - 4) Urine Microscopic WBC 16 /HPF (0-5) H Urine Squamous Epithelial Cells Mod /hpf (<5) Urine Bacteria Mod /hpf (None Seen) H Urine Mucus Few (None Seen) Urine Yeast (Budding) Occasional /hpf (None Urine Glucose Normal mg/dL (Normal) Urine Test Positive (Negative) Microbiology Microbiology Date/Time Source Procedure Growth Status 01/30/25 21:51 Blood Blood Culture - Preliminary NO GROWTH AFTER 24 HOURS OF INCUBATION. Resulted Labs and/or images reviewed: Labs reviewed by me Assessment/Plan Assessment/Plan Chest pain rule out ACS Tachycardia/palpitations EKG: Sinus tachycardia, no acute ischemic changes Troponin WNL Echocardiography ordered with no vaginal bleed -ultrasound: Live fetus, with adjacent subchorionic hemorrhage -recommended with green leafy vegetables -consider multivitamins and folic acid after prop and scenery maker consult, due to patient has allergies to multivitamin -prop and scenery maker consultation done Rule out thyroid disorder -TSH and free T4 ordered GI prophylaxis: Not indicated DVT prophylaxis: SCDs Diet: Regular Continuing current management. Appreciate cardiology input. waiting for echo EKG Show: junctional tachycardia in the 130s bpm followed by two with sinus tachycardia rhythms in the 120s bpm * Serial troponin levels, negative * Transthoracic echocardiogram, pending * Medical records from [facility] accessed by Dr. Carrillo: patient found in a supraventricular tachycardia rhythm in the 190s bpm with chemical cardioversion including adenosine 6 mg followed by 12 mg (12/25/2022). During admission she was administered metoprolol p.o. She also underwent a transthoracic echocardiogram revealing an LVEF of 55%. It is not clear if the patient underwent direct current cardioversion for which medical records have been ordered. Continue IVF. Replete electrolytes as necessary, K>4 and Mg >2. Obtain medical records from [facility] given history of supraventricular tachycardia with questionable DCCV in 2022. The patient can benefit from an outpatient Cardiology/EP evaluation and an event monitor per cardiology rec. In the setting of a supraventricular tachycardia event, the patient can be treated initially with vasovagal maneuvers, then adenosine, beta-blockers, and verapamil as 3rd line therapy. Beta-blockers can be use for suppressive therapy for SVT in the absence of preexcitation. Unstable arrhythmias should be treated with electrical cardioversion and antiarrhythmic medications should be avoided in the 1st trimester if possible. Monitor ECG changes closely and notify accordingly. Per MOUNT LOADER, patient need to follow up as outpatient for: Subchorionic hemorrhage. Supportive care for now. The patient to follow up outpatient as soon as she is discharged for re-scanning of subchorionic bleed. Avoid exercise and do pelvic rest. This medical document was created using an electronic medical record system with [employer] dictation system. Although this document has been carefully reviewed, there may still be some phonetic and typographical errors. These areas are purely typographical due to imperfections of the software programs, and do not reflect any compromise in the patient's medical care. Plan discussed with: Patient My Orders Orders - DORON ROBERT MD Procedure Category Date Status Time * Cardiology Consult CONS 01/31/25 Transmitted 12:26 Date of Service: Feb 01, 2025 Billing Provider: DORON ROBERT MD Common Visit Codes: [id number] INP/OBS CARE(HIGH) DORON ROBERT MD Feb 01, 2025 11:46
--- NOTE | 2025-02-01 12:35 | DVHPN2 ---
Visit Coding OBGYN Date of Service: Feb 01, 2025 Billing Provider: ROLANDO SANTIZO DO MARKETING BUSINESS ANALYST Common Visit Codes: [id number] OBS CARE (HIGH) MARKETING BUSINESS ANALYST Consultation Codes: [id number] CONSULT <110MIN ROLANDO SANTIZO DO Feb 01, 2025 12:35
--- NOTE | 2025-02-01 17:13 | DVHSR ---
APPROVED REPORT EXAM: Two-dimensional and M-mode echocardiogram with Doppler and color Doppler. Blood Pressure: 106/76 mmHg INDICATION Palpitations in . RISK FACTORS Height: 5'0, Weight: 114 DIMENSIONS LVDd 4.1 (3.8-5.7cm) LA (2D) 2.6 (1.9-4.0cm) Aortic Root 2.1 (2.0-3.7cm) LVDs 2.6 (2.5-4.0cm) LA (MM) (1.9-4.0cm) Aortic Cusp Exc 1.7 (1.5-2.0cm) EF (%) 66.0 (55-70%) Rt. Atrium (1.9-4.0cm) Asc. Aorta 2.2 cm IVSd 0.7 (0.7-1.1cm) RV (D) (1.8-2.4cm) PWd 0.7 (0.7-1.1cm) Mitral Valve Mitral Mitral Stenosis E wave 0.92m/s MV Mean GR. mmHg A wave 0.83m/s MV Peak GR. mmHg E/A ratio 1.1 2D MVA cm2 DECEL Time 168ms PRESS 1/2 Time ms Aortic Valve Aortic Valve Aortic Stenosis V1 1.07m/s AO Mean GR. 3mmHg V2 1.20m/s AO Peak GR. 6mmHg LVOT Diameter 1.8 (1.8-2.4cm) Doppler ALFA 2.27cm2 Pulmonic Valve V2 1.09m/s Other Information Technically limited study due to body habitus. Conclusion lvef 65% normal rv function normal atria no severe valve abnormalities noted
[2025-02-01] MEDS: Ensure HIGH Protein Vanilla 8oz Bottle PO SCH (18:00)
[2025-02-01 21:32] LABS: Urine Protein, UAD Negative (Negative)
[2025-02-02] VITALS (7 sets, daily range): BP systolic 97–145; BP diastolic 68–88; PULSE 65–96; RESP 16–18; TEMP 36.8; O2SAT 97–100
[2025-02-02 08:51] LABS: Hematocrit 38.8 % (36.0-46.0); Hemoglobin 13.0 g/dL (12.2-16.2); Mean Corpuscular Hemoglobin 29.7 pg (28.0-32.0); Mean Corpuscular Volume 88.5 fL (80.0-100.0); Nucleated Red Blood Cells % 0.0 %
[2025-02-02 09:08] LABS: Chloride 105 mmol/L (98-107); Potassium 3.9 mmol/L (3.5-5.1)
[2025-02-02 09:09] LABS: Anion Gap 9 (5-15); Calcium 9.1 mg/dL (8.7-10.4); Carbon Dioxide 22 mmol/L (20-31)
[2025-02-02 09:14] LABS: BUN/Creatinine Ratio 13.5 (10.0-20.0); Glucose 98 mg/dL (74-106)
[2025-02-02 09:15] LABS: Magnesium 1.7 mg/dL (1.6-2.6)
[2025-02-02 09:17] LABS: Blood Urea Nitrogen 7 mg/dL (9-23); Sodium 136 mmol/L (136-145)
--- NOTE | 2025-02-02 11:36 | DVHPN2 ---
Consult Progress Note Date Seen: Feb 02, 2025 Subjective Review of Systems: CVS:Abnormal, RESPIRATORY:Normal, NEURO:Normal Other Systems: C/o a one time event of palpitations earlier. potline monitor reviewed with a one time sinus tachycardia rhythm x 11 sec Objective vital signs Vital Sign Date Time Temp Pulse Resp B/P (MAP) Pulse Ox O2 Delivery O2 Flow Rate FiO2 02/02/25 08:00 96 16 98 Room Air* 0 21 02/02/25 05:00 98.4 97/68 (78) 98.4 Total Intake and Output 02/01/25 02/01/25 02/02/25 15:00 23:00 07:00 Intake Total 900 ml 800 ml Balance 900 ml 800 ml medications Current Medications Medications Dose Ordered Sig/Lennox Route Start Time Stop Time Status Last Admin Dose Admin Ceftriaxone Sodium 50 ml @ 100 mls/hr DAILY@2100 IV 01/31/25 21:00 02/01/25 21:23 100 MLS/HR Acetaminophen 650 mg Q6HPRN PRN PO 02/01/25 00:00 Enteral Nutritional Formula 240 ml TIDWM PO 02/01/25 18:00 02/02/25 08:00 240 ML Examination: LUNGS:Normal, CVS:Normal (Currently NSR 80s bpm. potline monitor reviewed with a one time sinus tachycardia rhythm x 11 sec) laboratory and microbiology Laboratory Tests 02/02/25 08:33 Test 02/02/25 08:33 Range/Units Serum Glucose 98 74-106 mg/dL Problem List/Assessment/Plan Problem List/Assessment/Plan Palpitations rule out tachyarrhythmias Rule out structural heart disease Junctional tachycardia, resolved Hx of supraventricular tachycardia at 7 mos gestation status post chemical cardioversion and questionable DCCV Current first trimester gestational state * Transthoracic echocardiogram revealed LVEF 65% with normal RV function, normal atria and no severe valve abnormalities * Twelve lead electrocardiogram x3 revealed one with junctional tachycardia rhythm in the 130s bpm followed by two with sinus tachycardia rhythms in the 120s bpm * Serial troponin levels, negative * Medical records from [facility] accessed by Dr. Carrillo: patient found in a supraventricular tachycardia rhythm in the 190s bpm with chemical cardioversion including adenosine 6 mg followed by 12 mg (12/25/2022). During admission she was administered metoprolol p.o. She also underwent a transthoracic echocardiogram revealing an LVEF of 55%. It is not clear if the patient underwent direct current cardioversion for which medical records have been ordered. Plan/Recommendation (Dr. Carrillo) Recommendations include optimal oral hydration and to replete electrolytes as necessary, K>4 and Mg >2. The patient can benefit from an outpatient electrophysiology evaluation as well as an event monitor. In the setting of a supraventricular tachycardia event, the patient can be treated initially with vasovagal maneuvers, then adenosine, beta-blockers, and verapamil as 3rd line therapy. Beta-blockers can be use for suppressive therapy for SVT in the absence of preexcitation. Unstable arrhythmias should be treated with electrical cardioversion and antiarrhythmic medications should be avoided in the 1st trimester if possible. There is no further in-patient cardiac work-up indicated at this time. Kindly all with any questions or concerns. Thank you for allowing us to participate in this patient's care. This medical document was created using an electronic medical record system with voice recognition software and computerized dictation system. Although this document has been carefully reviewed, there might still be some phonetic and typographical errors. Occasional wrong-word or ``sound-alike substitutions may have occurred due to the inherent limitations of voice recognition software. These areas are purely typographical due to imperfections of the software programs and do not reflect any compromise in the patient's medical care. Please read the chart carefully and recognize, using context, where these substitutions have occurred. Plan discussed with: Patient, Other Date of Service: Feb 02, 2025 Billing Provider: QI SCHAFFER Cardiology Common Codes: [id number] HOSP CARE(High QI SCHAFFER Feb 02, 2025 11:36
[2025-02-02] MEDS: MAGNESIUM SULFATE 1GM/100ML 100 ML IV ONE (12:08)
--- NOTE | 2025-02-02 13:07 | DVHINCON2 ---
GI Consult Consult Note GI consult note Date of Consultation: 02/02/2025 Chief Complaint: GERD and pain. First trimester of Referring Physician:Dr Skelton H&P: 29-year-old female , nine weeks admitted with complains of palpitations and chest pain is being evaluated by Cardiology. Patient also complains of epigastric pain that is on and off for the past 2-3 years, which starts before she starts eating but worsens after eating and says it is on a scale of 6-7 on a 0-10 scale. Only has occasional GERD symptoms when eating certain foods. Patient has noticed nausea since being . No EGD in past Past Medical History: Possible arrhythmia during previous Past Surgical History: Denies Social History: NO smoking, drinking ETOH and use of illegal drugs. Family History: Noncontributory Review of Systems: Constitutional: no fever, chill, weight loss HEENT: no eye pain, no hearing loss, no oral lesion, no scleral icterus Heart: no chest pain, no chest pressure Lung: no cough, no dyspnea with exertion Abdomen: see HPI Physical exam: General: NAD, AAOX3 Chest: lung mak clear to auscultation Heart: RRR, no murmur Abdomen: non-distended, no tenderness to palpation, +BS Labs: Labs Test 02/02/25 08:33 02/01/25 21:05 02/01/25 10:25 01/31/25 07:42 Range/Units White Blood Count 6.0 4.4-10.8 10^3/uL Red Blood Count 4.39 4.0-5.20 10^6/uL Hemoglobin 13.0 12.2-16.2 g/dL Hematocrit 38.8 36.0-46.0 % Mean Corpuscular Volume 88.5 80.0-100.0 fL Mean Corpuscular Hemoglobin 29.7 28.0-32.0 pg Mean Corpuscular Hemoglobin Concent 33.5 32.0-36.0 g/dL Red Cell Distribution Width 13.0 11.8-14.3 % Platelet Count 219 140-450 10^3/uL Mean Platelet Volume 8.6 6.9-10.8 fL Neutrophils (%) (Auto) 70.6 37.0-80.0 % Lymphocytes (%) (Auto) 23.3 10.0-50.0 % Monocytes (%) (Auto) 4.7 0.0-12.0 % Eosinophils (%) (Auto) 1.0 0.0-7.0 % Basophils (%) (Auto) 0.4 0.0-2.0 % Neutrophils # (Auto) 4.3 1.6-8.6 10 ^3/uL Lymphocytes # (Auto) 1.4 0.4-5.4 10 ^3/uL Monocytes # (Auto) 0.3 0-1.3 10 ^3/uL Eosinophils # (Auto) 0.1 0-0.8 10 ^3/uL Basophils # (Auto) 0 0-0.2 10 ^3/uL Nucleated Red Blood Cells 0.0 % Sodium Level 136 136-145 mmol/L Potassium Level 3.9 3.5-5.1 mmol/L Chloride Level 105 98-107 mmol/L Carbon Dioxide Level 22 20-31 mmol/L Anion Gap 9 5-15 Blood Urea Nitrogen 7 L 9-23 mg/dL Creatinine 0.52 L 0.550-1.02 mg/dL Glomerular Filtration Rate Calc 131 >90 mL/min BUN/Creatinine Ratio 13.5 10.0-20.0 Serum Glucose 98 74-106 mg/dL Calcium Level 9.1 8.7-10.4 mg/dL Magnesium Level 1.7 1.6-2.6 mg/dL Urine Color Colorless Yellow Urine Clarity Clear Clear Urine pH 6.5 5.0-9.0 Urine Specific [place] 1.004 1.001-1.035 Urine Protein Negative Negative Urine Ketones Negative Negative Urine Blood Negative Negative /uL Urine Nitrite Negative Negative Urine Bilirubin Negative Negative Urine Urobilinogen Normal Negative mg/dL Urine Leukocyte Esterase Negative Negative /uL Urine RBC 0 - 4 /hpf Urine Microscopic WBC 1 0-5 /HPF Urine Squamous Epithelial Cells Few <5 /hpf Urine Bacteria Few H None Seen /hpf Urine Glucose Normal Normal mg/dL Hemoglobin A1c 5.1 <5.7 % A1C Triglycerides Level 81 < 150 mg/dL Cholesterol Level 184 < 200 mg/dL LDL Cholesterol 100 H < 100 mg/dL HDL Cholesterol 74 H 40-59 mg/dL Total Bilirubin 0.3 0.2-1.0 mg/dL Aspartate Amino Transferase (AST) 17 13-40 U/L Alanine Aminotransferase (ALT) 15 7-40 U/L Alkaline Phosphatase 48 46-116 U/L Total Protein 6.8 5.7-8.2 g/dL Albumin 4.0 3.2-4.8 g/dL Test 01/30/25 21:49 01/30/25 20:17 01/30/25 19:37 01/30/25 18:19 Range/Units Lactic Acid Level 0.7 0.4-2.0 mmol/L Thyroid Stimulating Hormone (TSH) 1.77 0.55-4.78 uIU/mL Urine Mucus Few None Seen Urine Yeast (Budding) Occasional None Seen /hpf Urine Test Positive Negative Troponin I High Sensitivity 3 L </=34 ng/L Beta HCG, Quantitative 94947.1 H 1.5-4.2 mIU/mL Free Thyroxine (T4) Calculated 1.26 0.89-1.76 ng/dL Test 01/30/25 18:16 Range/Units D-Dimer, Quantitative 0.49 0.0-0.49 mg/L FEU Microbiology Date/Time Source Procedure Growth Status 02/01/25 21:05 Voided Urine Urine Culture - Preliminary No growth Resulted 01/30/25 21:51 Blood Blood Culture - Preliminary NO GROWTH AFTER 48 HOURS OF INCUBATION. Resulted Imaging: Assessment: Abdominal pain Tachycardia/palpitations Plan: Discussed with Dr. Jain Gallbladder ultrasound Carafate and Mylanta as needed Diet as tolerated We will continue to monitor patient Plan discussed with patient and RN Thank you for this consult Date of Service: Feb 02, 2025 Billing Provider: JAIRO BAUTISTA Common Visit Codes: CONSULT ONLY Consultation Codes: [id number] CONSULT <60MIN JAIRO BAUTISTA Feb 02, 2025 13:07
[2025-02-02] MEDS ORDERED: MAALOX PLUS or MAALOX 30 ML PO PRN (13:15)
[2025-02-02] MEDS ORDERED: PREN-96 PO (13:23)
--- NOTE | 2025-02-02 13:27 | DVHDS2 ---
Discharge Summary Date of Admission Jan 30, 2025 at 23:31 Date of Discharge: Feb 02, 2025 Admitting Diagnosis Atrial tachycardia, questionable SVT Labs/Diagnostic Data: Laboratory Results Test 02/02/25 08:33 02/01/25 21:05 02/01/25 10:25 01/31/25 07:42 White Blood Count 6.0 10^3/uL (4.4-10.8) Red Blood Count 4.39 10^6/uL (4.0-5.20) Hemoglobin 13.0 g/dL (12.2-16.2) Hematocrit 38.8 % (36.0-46.0) Mean Corpuscular Volume 88.5 fL (80.0-100.0) Mean Corpuscular Hemoglobin 29.7 pg (28.0-32.0) Mean Corpuscular Hemoglobin Concent 33.5 g/dL (32.0-36.0) Red Cell Distribution Width 13.0 % (11.8-14.3) Platelet Count 219 10^3/uL (140-450) Mean Platelet Volume 8.6 fL (6.9-10.8) Neutrophils (%) (Auto) 70.6 % (37.0-80.0) Lymphocytes (%) (Auto) 23.3 % (10.0-50.0) Monocytes (%) (Auto) 4.7 % (0.0-12.0) Eosinophils (%) (Auto) 1.0 % (0.0-7.0) Basophils (%) (Auto) 0.4 % (0.0-2.0) Neutrophils # (Auto) 4.3 10 ^3/uL (1.6-8.6) Lymphocytes # (Auto) 1.4 10 ^3/uL (0.4-5.4) Monocytes # (Auto) 0.3 10 ^3/uL (0-1.3) Eosinophils # (Auto) 0.1 10 ^3/uL (0-0.8) Basophils # (Auto) 0 10 ^3/uL (0-0.2) Nucleated Red Blood Cells 0.0 % Sodium Level 136 mmol/L (136-145) Potassium Level 3.9 mmol/L (3.5-5.1) Chloride Level 105 mmol/L (98-107) Carbon Dioxide Level 22 mmol/L (20-31) Anion Gap 9 (5-15) Blood Urea Nitrogen 7 mg/dL (9-23) Creatinine 0.52 mg/dL (0.550-1.02) Glomerular Filtration Rate Calc 131 mL/min (>90) BUN/Creatinine Ratio 13.5 (10.0-20.0) Serum Glucose 98 mg/dL (74-106) Calcium Level 9.1 mg/dL (8.7-10.4) Magnesium Level 1.7 mg/dL (1.6-2.6) Urine Color Colorless (Yellow) Urine Clarity Clear (Clear) Urine pH 6.5 (5.0-9.0) Urine Specific [place] 1.004 (1.001-1.035) Urine Protein Negative (Negative) Urine Ketones Negative (Negative) Urine Blood Negative /uL (Negative) Urine Nitrite Negative (Negative) Urine Bilirubin Negative (Negative) Urine Urobilinogen Normal mg/dL (Negative) Urine Leukocyte Esterase Negative /uL (Negative) Urine RBC /hpf (0 - 4) Urine Microscopic WBC 1 /HPF (0-5) Urine Squamous Epithelial Cells Few /hpf (<5) Urine Bacteria Few /hpf (None Seen) Urine Glucose Normal mg/dL (Normal) Hemoglobin A1c 5.1 % A1C (<5.7) Triglycerides Level 81 mg/dL (< 150) Cholesterol Level 184 mg/dL (< 200) LDL Cholesterol 100 mg/dL (< 100) HDL Cholesterol 74 mg/dL (40-59) Total Bilirubin 0.3 mg/dL (0.2-1.0) Aspartate Amino Transferase (AST) 17 U/L (13-40) Alanine Aminotransferase (ALT) 15 U/L (7-40) Alkaline Phosphatase 48 U/L (46-116) Total Protein 6.8 g/dL (5.7-8.2) Albumin 4.0 g/dL (3.2-4.8) Test 01/30/25 21:49 01/30/25 20:17 01/30/25 19:37 01/30/25 18:19 Lactic Acid Level 0.7 mmol/L (0.4-2.0) Thyroid Stimulating Hormone (TSH) 1.77 uIU/mL (0.55-4.78) Urine Mucus Few (None Seen) Urine Yeast (Budding) Occasional /hpf (None Urine Test Positive (Negative) Troponin I High Sensitivity 3 ng/L (</=34) Beta HCG, Quantitative 93797.1 mIU/mL (1.5-4.2) Free Thyroxine (T4) Calculated 1.26 ng/dL (0.89-1.76) Test 01/30/25 18:16 D-Dimer, Quantitative 0.49 mg/L FEU (0.0-0.49) Other Laboratory Tests 02/02/25 08:33 Brief Hx & Hospital Course: History of Present Illness Ms Radha Michael, a 29-year-old female, , 9 weeks presented to the ER with the complaints of palpitations and chest pain for 1 day. She reports having those symptoms spontaneously while she was taking rest. She reports the chest pain as tightness, as someone sitting on the chest, which radiates to the back and shoulder blades. She also reports having mild shortness of breaths with a no relation to position change. She denies any urinary symptoms, vaginal bleeding, fever or any other complaints. She denies any caffeine use, anxiety, thyroid disorders. The patient is not taking any vitamins or folic acid due to concern for shellfish allergy, she believes multivitamin contains shellfish. Course of hospitalization: Patient had cardiology consultation, as well as OBGYN consultation. Patient has had no further atrial tachycardia while in the hospital. Patient was given IV magnesium. Patient will be discharged home and is instructed to follow up with her OBGYN as well as obtain referral to [facility] for possible outpatient event heart monitoring. Discussion was made with the patient regarding supplementation. She is agreeable to start taking vitamins if they shellfish free, which was noted with the prescription sent to the pharmacy. Patient was agreeable with discharge plan. All questions answered. Physical examination General: Alert and Oriented x3. No acute distress. Well-nourished. Eyes: EOMI. Anicteric. HENT: Moist mucous membranes. Lungs: Clear to auscultation bilaterally. No accessory muscle use. Cardiovascular: Regular rate and rhythm. No murmur. No JVD. Abdomen: Soft, non-tender and non-distended. No palpable masses. Extremities: No edema. Non-tender. Skin: No rashes or lesions. Warm. Neurologic: No focal neurological deficits. CN II-XII grossly intact, but not individually tested. Psychiatric: Cooperative. Appropriate mood and affect. Total time spent with patient discussing and formulating plan of care: 35 minutes. This medical document was created using an electronic medical record system with [employer] dictation system. Although this document has been carefully reviewed, there may still be some phonetic and typographical errors. These areas are purely typographical due to imperfections of the software programs, and do not reflect any compromise in the patient's medical care. Consults/Reason for consult OBGYN: Nine week Cardiology: Atrial tachycardia with palpitation Condition at Discharge: Fair Final Diagnosis/Problems List Atrial tachycardia Nine week Discharge Disposition: Home Discharge Instruct/Medications Diet: Regular Activity: No Restrictions, As Tolerated Scheduled Vit W/ Ferrous Fumara ( One Daily), 1 TAB PO DAILY 36 Discharge Statement: "Patient was advised to return to the ER or call 911 if any headaches, dizziness, shortness of breath, chest pain, abdominal pain, bleeding, fevers, or worsening of medical condition. Patient was counseled about treatment plan, medications, possible side effects, patientverbalized understanding. All questions were answered to the best of my ability. This discharge took greater then 30 minutes in planning, reviewing documentation, counseling the patient, and discussing with other team members." ASSESSMENT ASSESSMENT Assessment Date of Service: Feb 02, 2025 Billing Provider: BRUCE GUILLEN NP Common Visit Codes: 95223-YFA/OBS DISCH DAY >30min BRUCE GUILLEN NP Feb 02, 2025 13:27
--- NOTE | 2025-02-02 14:53 | DVH ---
INDICATION: epigastric abd pain TECHNIQUE: Multiple real-time sonographic images were obtained of the right upper quadrant. COMPARISON: None FINDINGS: The liver demonstrates homogenous echotexture without focal mass lesions. The liver measures 13cm. There is no intrahepatic or extrahepatic ductal dilatation. The common duct measures 0.2 mm. The gallbladder is without evidence of stone or sludge. The gallbladder wall measures 0.2 mm and is within normal limits. Multiple gallbladder polyps up to 5 mm The right kidney measures 10 cm. The right kidney is normal in contour, size, and shape. The echogenicity is normal. There is no hydronephrosis. The pancreas is not well visualized due to overlying bowel gas. IMPRESSION: No sonographic evidence of gallstones or acute cholecystitis. Multiple gallbladder polyps up to 5 mm
[2025-02-02] MEDS ORDERED: SUCRALFATE 1 GM/10 ML ORAL SUSP PO SCH (22:00)
[2025-02-03] MEDS ORDERED: MAGNESIUM OXIDE 400 MG TAB PO SCH (10:00)
== END 2025-02-02 18:00 | disposition home or self-care (01) | DRG 566 ==
LOC: ER 17:56 → OVERFLOW 23:31 → TELE-CENTR 01-31 23:08
PROVIDERS: ADMIT Nurse Practitioner Acute Care; ATTEND Nurse Practitioner Acute Care
DX: O99.891 Other specified diseases and conditions complicating pregnancy (principal); I47.19 Other supraventricular tachycardia; O23.01 Infections of kidney in pregnancy, first trimester; N12 Tubulo-interstitial nephritis, not specified as acute or chronic; O46.8X1 Other antepartum hemorrhage, first trimester; Z3A.09 9 weeks gestation of pregnancy; R00.2 Palpitations
CPT/HCPCS: 36415; 76705; 76801; 80048; 80053; 80061; 81001; 81025; 83036; 83605; 83735; 84439; 84443; 84484; 84702; 85025; 85379; 87040; 87086; 93005; 93306; 96365; G0378; Q0162